=== PATIENT | female | born 1990 | race Caucasian/White ===

== ENCOUNTER 2019-09-09 21:15 | Emergency (ER) | payer OTHER ==
[~2019-09-09] VITALS: Ht 162.6 cm; Wt 53.4 kg
[2019-09-09 21:21] VITALS: BP 107/63; PULSE 95; RESP 22; Ht 162.6 cm; Wt 53.4 kg
== END 2019-09-10 00:22 | disposition home or self-care (01) ==
LOC: FTE 21:15
DX: O03.9 Complete or unspecified spontaneous abortion without complication (principal)
CPT/HCPCS: 36415; 76801; 81001; 84702; 85025; 86900; 86901